=== PATIENT | male | born 1960 | race Caucasian/White ===

== ENCOUNTER 2016-05-27 19:24 | Inpatient (IN) | payer MEDICARE ==
[~2016-05-27] VITALS: Ht 172.7 cm; Wt 146.5 kg
[~2016-05-27 19:24] MED LIST: ACID1TAB14 PO; AMLO10TA2 PO; ASCO-78 PO; ASPI81TA2 PO; ATOR20TA58 PO; CHOL10003 PO; CHOL20004 PO; CIPR250T30 PO; COLE1TAB PO; FERR325T31 PO; FURO-69 PO; FURO20TA3 PO; FURO40TA4 PO; GLIP10TA13 PO; HUM100VI5 SQ; HYDR200T5 PO; INSU100V12 SQ; LEVO500T38 PO; LISI-338 PO; METF10002 PO; METO25TA4 PO; METR500T PO; PANT40TA5 PO; POTA20TA4 PO; PRAV20TA2 PO; PRED5TAB PO; SPIR25TA3 PO; TRAM50TA PO; Vancomycin Hcl PO
--- NOTE | 2016-05-27 21:28 | PHYS DOC ---
Past Medical History Past Medical History: Cancer, Diabetes-Type II, GERD, Hepatitis Additional Past Medical Histor: LUNG CA, OBESITY, FLOYD (HEP), CDIFF. Past Surgical History: Other Additional Past Surgical Histo: L HAND SX, BACK SX, PORT PLACEMENT RIGHT CHEST Alcohol Use: Sober Drug Use: None Adult General Chief Complaint Chief Complaint: ABDOMINAL PAIN HPI HPI Patient is a 55 year old male who presents with lower abdominal pain, nausea, wound between buttocks. Patient reports symptoms started couple days ago. He describes aching in his lower abdomen without clear inciting or mitigating factors. Not taken anything for symptoms at home prior to arrival. He was admitted to [facility] last week. Of note, patient has history of stage IV lung cancer for which he is on chemotherapy treatment. Last treatment was last week. Review of Systems Review of Systems Constitutional: Denies fever or chills Eyes: Denies change in visual acuity or eye pain HENT: Denies nasal congestion or sore throat Respiratory: Denies cough or shortness of breath Cardiovascular: Denies chest pain GI: Lower abdominal pain, nausea. Denies vomiting, bloody stools or diarrhea : Denies dysuria or hematuria Musculoskeletal: Denies back pain or joint pain Integument: Wound between buttocks Neurologic: Denies headache, focal weakness or sensory changes Current Medications Current Medications Current Medications Medications (Trade) Dose Ordered Sig/King Start Time Stop Time Status Last Admin Dose Admin Dextrose 12.5 gm PRN Q15MIN PRN 05/27/16 23:30 Info (Do NOT chart on this entry -- for MONITORING) 1 each PRN DAILY PRN 05/27/16 22:45 05/29/16 22:44 Insulin Aspart (Novolog) 0-7 UNITS TIDWMEALS 05/28/16 08:00 Iohexol (Omnipaque 300 Mg/ml) 75 ml 1X ONCE 05/27/16 23:00 05/27/16 23:01 DC 05/27/16 23:22 75 ML Morphine Sulfate 4 mg 4 mg PRN Q2HR PRN 05/27/16 23:30 05/28/16 23:29 Ondansetron HCl (Zofran) 4 mg PRN Q8HRS PRN 05/27/16 23:30 05/28/16 23:29 Piperacillin Sod/ Tazobactam Sod 1 each 1 each PRN DAILY PRN 05/27/16 23:15 Piperacillin Sod/ Tazobactam Sod/ Sodium Chloride (Zosyn/Iv Sodium Chloride 0.9% 100ml) 100 ml @ 200 mls/hr 1X ONCE 05/27/16 23:30 05/27/16 23:59 Sodium Chloride (Iv Sodium Chloride 0.9% 1000ml Bag) 1,000 ml @ 500 mls/hr 1X ONCE 05/27/16 23:30 05/28/16 01:29 Vancomycin HCl (Vanco Per Pharmacy) 1 each PRN DAILY PRN 05/27/16 23:15 Vancomycin HCl 2 gm/Sodium Chloride 500 ml @ 250 mls/hr 1X ONCE 05/27/16 23:30 05/28/16 01:29 Allergies Allergies Allergies Coded Allergies Type Severity Reaction Last Updated Verified acetaminophen Allergy Severe 12/28/15 Yes Physical Exam Physical Exam Constitutional: Well developed, well nourished, no acute distress, non-toxic appearance. [] HENT: Normocephalic, atraumatic, bilateral external ears normal, oropharynx moist, no oral exudates, nose normal. [] Eyes: PERRLA, EOMI, conjunctiva normal, no discharge. [] Neck: Normal range of motion, no tenderness, supple, no stridor. [] Cardiovascular:Heart rate regular rhythm, no murmur [] Lungs & Thorax: Bilateral breath sounds clear to auscultation [] Abdomen: Bowel sounds normal, soft, no tenderness, no masses, no pulsatile masses. [] Skin: Warm, dry, no erythema, no rash. [] Back: No tenderness, no CVA tenderness. [] Extremities: No tenderness, no cyanosis, no clubbing, ROM intact, no edema. [] Neurologic: Alert and oriented X 3, normal motor function, normal sensory function, no focal deficits noted. [] Psychologic: Affect normal, judgement normal, mood normal. [] Current Patient Data Vital Signs Vital Signs Date Time Temp Pulse Resp B/P Pulse Ox O2 Delivery O2 Flow Rate FiO2 05/27/16 22:52 20 05/27/16 21:55 95 107/54 93 Room Air 05/27/16 19:50 98.5 98.5 Lab Values Laboratory Tests Test 05/27/16 20:40 05/27/16 22:30 White Blood Count 19.1x10^3/uL (4.0-11.0) H Red Blood Count 1.91x10^6/uL (4.30-5.70) L Hemoglobin 6.5g/dL (13.0-17.5) *L Hematocrit 19.8% (39.0-53.0) *L Mean Corpuscular Volume 104fL (79-100) H Mean Corpuscular Hemoglobin 34pg (25-35) Mean Corpuscular Hemoglobin Concent 33g/dL (31-37) Red Cell Distribution Width 23.8% (11.5-14.5) H Platelet Count 23x10^3/uL (140-400) *L Neutrophils (%) (Auto) 1% (31-73) L Lymphocytes (%) (Auto) 98% (24-48) H Monocytes (%) (Auto) 1% (0-9) Eosinophils (%) (Auto) 0% (0-3) Basophils (%) (Auto) 0% (0-3) Neutrophils # (Auto) 0.2x10^3uL (1.8-7.7) L Lymphocytes # (Auto) 18.6x10^3/uL (1.0-4.8) H Monocytes # (Auto) 0.2x10^3/uL (0.0-1.1) Eosinophils # (Auto) 0.0x10^3/uL (0.0-0.7) Basophils # (Auto) 0.0x10^3/uL (0.0-0.2) Segmented Neutrophils % 1% (35-66) L Lymphocytes % 91% (24-48) H Atypical Lymphocytes % (Manual) 7% (0-0) H Monocytes % 1% (0-10) Smudge Cells Present Platelet Estimate Decreased (ADEQUATE) Poikilocytosis Slight Anisocytosis Mod Macrocytosis Slight Target Cells Few Sodium Level 138mmol/L (136-145) Potassium Level 3.9mmol/L (3.5-5.1) Chloride Level 101mmol/L (98-107) Carbon Dioxide Level 27mmol/L (21-32) Anion Gap 10 (6-14) Blood Urea Nitrogen 33mg/dL (8-26) H Creatinine 1.2mg/dL (0.7-1.3) Estimated GFR (Cockcroft-Gault) 62.6 BUN/Creatinine Ratio 28 (6-20) H Glucose Level 145mg/dL (70-99) H Calcium Level 7.4mg/dL (8.5-10.1) L Total Bilirubin 6.6mg/dL (0.2-1.0) H Aspartate Amino Transferase (AST) 91U/L (15-37) H Alanine Aminotransferase (ALT) 63U/L (16-63) Alkaline Phosphatase 182U/L (46-116) H Total Protein 6.4g/dL (6.4-8.2) Albumin 1.6g/dL (3.4-5.0) L Albumin/Globulin Ratio 0.3 (1.0-1.7) L Lipase 73U/L (73-393) Lactic Acid Level 3.2mmol/L (0.4-2.0) H Laboratory Tests 05/27/16 20:40 Laboratory Tests 05/27/16 20:40 EKG EKG [] Radiology/Procedures Radiology/Procedures CT A/P: IMPRESSION 1. Small left pleural effusion. 2. Moderate amount of ascites which has increased slightly since the previous study. 3. No additional acute abnormality is seen. Course & Med Decision Making Course & Med Decision Making Pertinent Labs and Imaging studies reviewed. (See chart for details) Patient is 55-year-old male who presents with lower abdominal pain, nausea, wound between buttocks. Has recently had C. difficile. Will check labs, CT abdomen/pelvis. IV fluids, pain medication, nausea medication ordered for relief of symptoms. Labs notable for leukocytosis, anemia, thrombocytopenia, elevated total bilirubin, elevated lactic acid. CT results as above. Discussed with patient, will give blood transfusion given hemoglobin 6.5. Blood consent signed and placed on chart. Given immunocompromise status, will treat with broad spectrum antibiotics. Additional fluid bolus ordered. Have not given the full 30 mL per kilo sepsis bolus as patient's heart rate and blood pressure is okay and I do not wish to overload the patient. Discussed with Dr. Lee, will admit under his care for further evaluation and treatment. Dragon Disclaimer Dragon Disclaimer This electronic medical record was generated, in whole or in part, using a voice recognition dictation system. Departure Departure Referrals: ERIC JENSEN Jr, MD (PCP) THERON MONTERO MD May 27, 2016:28
[2016-05-27 21:42] LABS: BASO % 0 % (0-3); EOS % 0 % (0-3); LYMPH # 18.6 x10^3/uL (1.0-4.8); LYMPH % 98 % (24-48); MEAN CORPUSCULAR HEMOGLOBIN 34 pg (25-35); MEAN CORPUSCULAR HGB CONC 33 g/dL (31-37); MEAN CORPUSCULAR VOLUME 104 fL (79-100); MONO % 1 % (0-9); NEUT % 1 % (31-73); RED BLOOD COUNT 1.91 x10^6/uL (4.30-5.70); RED CELL DISTRIBUTION WIDTH 23.8 % (11.5-14.5); WHITE BLOOD COUNT 19.1 x10^3/uL (4.0-11.0)
[2016-05-27 21:47] LABS: HEMATOCRIT 19.8 % (39.0-53.0); HEMOGLOBIN 6.5 g/dL (13.0-17.5); PLATELET COUNT 23 x10^3/uL (140-400)
[2016-05-27 21:49] LABS: CALCIUM 7.4 mg/dL (8.5-10.1); CREATININE 1.2 mg/dL (0.7-1.3); GFR 62.6; POTASSIUM 3.9 mmol/L (3.5-5.1)
[2016-05-27 21:56] LABS: ALBUMIN 1.6 g/dL (3.4-5.0); ALBUMIN/GLOBULIN RATIO 0.3 (1.0-1.7); TOTAL BILIRUBIN 6.6 mg/dL (0.2-1.0); TOTAL PROTEIN 6.4 g/dL (6.4-8.2)
[2016-05-27] MEDS ORDERED: IV NORMAL SALINE 1000ML BAG 1,000 ML IV SCH (22:00)
[2016-05-27] MEDS ORDERED: ONDANSETRON PF 4 MG/2 ML VIAL. IV ONE (22:00)
[2016-05-27] MEDS ORDERED: MORPHINE SULFATE 4 MG/ML DISP.SYRIN. IV ONE (22:00)
[2016-05-27 22:05] LABS: PLT ESTIMATE DECREASED (ADEQUATE)
[2016-05-27 22:09] LABS: SMUDGE CELLS PRESENT
[2016-05-27 22:10] LABS: ANISOCYTOSIS MOD; POIKILOCYTOSIS SLIGHT
[2016-05-27 22:11] LABS: TARGET CELLS FEW
[2016-05-27] MEDS ORDERED: CONTRAST GIVEN MC PRN (22:45)
[2016-05-27] MEDS ORDERED: IOHEXOL 300 MG/ML 75 ML VIAL IV ONE (23:00)
[2016-05-27] MEDS ORDERED: PIP/TAZO PER PHARMACY MC PRN (23:15)
[2016-05-27] MEDS ORDERED: VANCOMYCIN PER PHARMACY MC PRN (23:15)
[2016-05-27] MEDS ORDERED: DEXTROSE 50% 25 GM / 50ML DISP.SYRIN. IV PRN (23:30)
[2016-05-27] MEDS ORDERED: VANCOMYCIN 2 GM in IV NORMAL SALINE 500ML BAG 500 ML IV ONE (23:30)
[2016-05-27] MEDS ORDERED: MORPHINE SULFATE 4 MG/ML DISP.SYRIN. IV PRN (23:30)
[2016-05-27] MEDS ORDERED: IV NORMAL SALINE 1000ML BAG 1,000 ML IV ONE (23:30)
[2016-05-27] MEDS ORDERED: PIPERACILLIN/TAZOBACTAM 4.5 GM in IV NORMAL SALINE 100ML 100 ML IV ONE (23:30)
[2016-05-27] MEDS ORDERED: ONDANSETRON PF 4 MG/2 ML VIAL. IV PRN (23:30)
--- NOTE | 2016-05-27 23:54 | RAD ---
PROCEDURE CT scan of the abdomen and pelvis with contrast 05/27/2016 HISTORY Severe lower abdominal pain. History of lung cancer. TECHNIQUE After the intravenous administration of 75 cc Omnipaque 300, contiguous, 5 millimeter axial sections were obtained through the abdomen and pelvis. One or more of the following individualized dose reduction techniques were utilized for this study: 1. Automated exposure control. 2. Adjustment of the mA and/or kV according to patient size. 3. Use of iterative reconstruction technique. FINDINGS Comparison study is dated 04/25/2016. Images through the lung bases demonstrate areas of atelectasis and/or infiltrate involving the visualized portions of both upper lobes. There is a small left pleural effusion. Left lower lobe atelectasis and/or infiltrate is seen. The liver has a nodular contour suggestive of cirrhosis. The spleen is mildly enlarged measuring 14 centimeters in length. No focal abnormality of the liver or spleen is seen. The pancreas, adrenal glands and kidneys are within normal limits. Mild atherosclerotic calcification of the abdominal aorta is seen. The abdominal aorta tapers normally. A moderate amount of ascites is seen involving the abdomen. There is no evidence of bowel obstruction Images through the pelvis demonstrate the urinary bladder distended with urine. Calcifications are seen within the pelvis consistent with phleboliths. A moderate amount of ascites is seen extending into the lower abdomen and the pelvis. The osseous structures are unchanged. The amount of ascites is increased slightly since the previous examination. IMPRESSION 1. Small left pleural effusion. 2. Moderate amount of ascites which has increased slightly since the previous study. 3. No additional acute abnormality is seen. Electronically signed by: Clive Coleman MD (May 27, 2016 23:52:59)
[2016-05-28] VITALS (19 sets, daily range): BP systolic 85–134; BP diastolic 40–68
[2016-05-28] MEDS ORDERED: INSULIN ASPART 300 UNITS/3 ML INSULN.PEN SQ SCH (08:00)
[2016-05-28] MEDS: PIPERACILLIN/TAZOBACTAM 3.375 GM in IV NORMAL SALINE 50ML 50 ML IV SCH ×2 (08:02→11:53)
[2016-05-28 08:31] LABS: ALBUMIN 1.5 g/dL (3.4-5.0); ALBUMIN/GLOBULIN RATIO 0.4 (1.0-1.7); CALCIUM 7.1 mg/dL (8.5-10.1); CREATININE 1.2 mg/dL (0.7-1.3); GFR 62.6; POTASSIUM 3.6 mmol/L (3.5-5.1); TOTAL BILIRUBIN 6.5 mg/dL (0.2-1.0); TOTAL PROTEIN 5.3 g/dL (6.4-8.2)
[2016-05-28] MEDS ORDERED: ONDANSETRON PF 4 MG/2 ML VIAL. IV PRN (09:10)
[2016-05-28] MEDS ORDERED: IBUPROFEN 600 MG TABLET. PO PRN (09:15)
[2016-05-28] MEDS ORDERED: DEXTROSE 50% 25 GM / 50ML DISP.SYRIN. IV PRN (09:15)
[2016-05-28] MEDS ORDERED: PANTOPRAZOLE 40 MG TABLET. PO SCH (10:00)
[2016-05-28] MEDS ORDERED: POTASSIUM CHLORIDE 20 MEQ TABLET.ER. PO SCH (10:00)
[2016-05-28] MEDS ORDERED: CHOLECALCIFEROL (VITAMIN D3) 1,000 UNIT TABLET PO SCH (10:00)
[2016-05-28 10:13] LABS: BASO % 0 % (0-3); EOS % 0 % (0-3); HEMOGLOBIN 7.1 g/dL (13.0-17.5); LYMPH # 11.5 x10^3/uL (1.0-4.8); LYMPH % 97 % (24-48); MEAN CORPUSCULAR HEMOGLOBIN 32 pg (25-35); MEAN CORPUSCULAR HGB CONC 34 g/dL (31-37); MEAN CORPUSCULAR VOLUME 96 fL (79-100); MONO % 1 % (0-9); NEUT % 1 % (31-73); RED BLOOD COUNT 2.18 x10^6/uL (4.30-5.70); RED CELL DISTRIBUTION WIDTH 24.5 % (11.5-14.5); WHITE BLOOD COUNT 11.8 x10^3/uL (4.0-11.0)
--- NOTE | 2016-05-28 10:23 | PDOC ---
Provider Note Provider Note Onc consult dictated- [id number] Stage IV lung cancer with bilateral lung mets- Palliative pemextrexed given 05/20. Has had complications w/ each cycle even w/ dose reductions but previously had tx response so wants to continue tx, does not wall pall care. Pancytopenia due to chemo- s/p 2 unit PRBC overnight CLL- Responsible for baseline lymphocytosis Sacral wound, likely due to baseline immobility Plan: - Transfuse for hgb < 7, plt < 7 - Received Neulasta 05/21. ANC likely to soon improve. Please only add granix if clinically decompensates. No obvious infx at this time. - Wound care consulted - CT chest ordered to ensure pt still having tx response. He desires more tx but has very poor tolerance for it. - ? pt's insurance still accepted here; NCM consulted to help determine if inpt transfer needed. Recently at [facility]. Dr. Casper is covering this weekend. I will return Tuesday. JEREL TALBERT DO May 28, 2016 10:23
[2016-05-28] MEDS ORDERED: IOHEXOL 300 MG/ML 75 ML VIAL IV ONE (10:45)
[2016-05-28 10:59] LABS: HEMATOCRIT 20.9 % (39.0-53.0); PLATELET COUNT 11 x10^3/uL (140-400)
--- NOTE | 2016-05-28 11:45 | PDOC1 ---
History and Physical Date of Admission Date of Admission DATE: 05/28/16 TIME: 11:38 Identification/Chief Complaint Chief Complaint weak - pt poor historian Source Source: Caregiver, Chart review, Patient History of Present Illness History of Present Illness Pt 55 male, known to me I admitted Mar 2016 for: 1. Acute Diarrhea in an immunocompromised 2. Hx c diff diarrhea Feb 2016 (first episode) 3. ARF sec to GI loss 4. HYPOTENSION, fluid responsive 5. Lung CA stage 4 on chemotherapy 6. Overweight with mod PCM 7. SIRS POA, no sepsis 8. Hx thrombocytopenia 9. Diabetes mellitus 10. Hx fungus esophagitis Very poor historian, looks very pale, MAybe came to ER for weakness> labs showed severe anemia hgb 6, platelets 23, WBC 19, Known to me for hx c diff,. he claims he is tsill having loose stools with some blood in it, claims finished the course of his vanco and flagyl NIO fevers, notes abd cramping - BUT These info are all upon coaxing, he would not volunteer any info He might down play his sxs He did not phillip much lunch CRea elevated, NS running aggressive LActate down to 3 from, 6 Past Medical History Cardiovascular: HTN GI: No pertinent hx Heme/Onc: Cancer Hepatobiliary: No pertinent hx Psych: No pertinent hx Musculoskeletal: low back pain Endocrine: Diabetes Past Surgical History Past Surgical History: No pertinent history Family History Family History: Alzheimer's Disease Social History Smoke: No ALCOHOL: none Drugs: None Current Problem List Problem List Problems Medical Problems: (1) Abdominal pain Status: Acute Problems: Current Medications Current Medications Current Medications Sodium Chloride (Iv Sodium Chloride 0.9% 1000ml Bag) 1,000 ml @ 1,000 mls/hr Q1H IV Last administered on 05/27/16 22:52; Start 05/27/16 at 22:00; Stop at 22:59; Status DC Ondansetron HCl (Zofran) 4 mg 1X ONCE IV Last administered on 05/27/16 22:52; Start 05/27/16 at 22:00; Stop 05/27/16 at 22:01; Status DC Morphine Sulfate 4 mg 1X ONCE IV Last administered on 05/27/16 22:52; Start at 22:00; Stop 05/27/16 at 22:01; Status DC Iohexol (Omnipaque 300 Mg/ml) 75 ml 1X ONCE IV Last administered on 05/27/16 23:22; Start 05/27/16 at 23:00; Stop 05/27/16 at 23:01; Status DC Info (Do NOT chart on this entry -- for MONITORING) 1 each PRN DAILY PRN MC SEE COMMENTS; Start 05/27/16 at 22:45; Stop 05/29/16 at 22:44 Vancomycin HCl (Vanco Per Pharmacy) 1 each PRN DAILY PRN MC SEE COMMENTS Last administered on 05/28/16 11:06; Start 05/27/16 at 23:15 Piperacillin Sod/ Tazobactam Sod 1 each 1 each PRN DAILY PRN MC SEE COMMENTS Last administered on 05/27/16 23:20; Start 05/27/16 at 23:15; Stop 05/28/16 at 11: 09; Status DC Vancomycin HCl 2 gm/Sodium Chloride 500 ml @ 250 mls/hr 1X ONCE IV Last administered on 05/28/16 08:53; Start 05/27/16 at 23:30; Stop 05/28/16 at 01:29; Status DC Piperacillin Sod/ Tazobactam Sod/ Sodium Chloride (Zosyn/Iv Sodium Chloride 0.9 % 100ml) 100 ml @ 200 mls/hr 1X ONCE IV Last administered on 05/27/16 23:40; Start 05/27/16 at 23:30; Stop 05/27/16 at 23:59; Status DC Ondansetron HCl (Zofran) 4 mg PRN Q8HRS PRN IV NAUSEA/VOMITING; Start 05/27/16 at 23:30; Stop 05/28/16 at 09:15; Status DC Morphine Sulfate 4 mg 4 mg PRN Q2HR PRN IV SEVERE PAIN; Start 05/27/16 at 23:30 ; Stop 05/28/16 at 23:29 Sodium Chloride (Iv Sodium Chloride 0.9% 1000ml Bag) 1,000 ml @ 500 mls/hr 1X ONCE IV Last administered on 05/28/16 09:06; Start 05/27/16 at 23:30; Stop at 01:29; Status DC Insulin Aspart (Novolog) 0-7 UNITS TIDWMEALS SQ ; Start 05/28/16 at 08:00; Stop 05/28/16 at 10:42; Status DC Dextrose 12.5 gm 12.5 gm PRN Q15MIN PRN IV SEE COMMENTS; Start 05/27/16 at 23:30 ; Stop 05/28/16 at 10:42; Status DC Piperacillin Sod/ Tazobactam Sod/ Sodium Chloride (Zosyn/Iv Sodium Chloride 0.9 % 50ml) 50 ml @ 100 mls/hr Q6HRS IV Last administered on 05/28/16t 08:02; Start 05/28/16 at 06:00 Ondansetron HCl (Zofran) 4 mg PRN Q6HRS PRN IV NAUSEA/VOMITING; Start 05/28/16 at 09:10 Insulin Aspart (Novolog) 0-9 UNITS TIDWMEALS SQ ; Start 05/28/16 at 12:00 Dextrose 12.5 gm PRN Q15MIN PRN IV SEE COMMENTS; Start 05/28/16 at 09:15 Ibuprofen (Motrin) 600 mg PRN Q6HRS PRN PO INFLAMMATION; Start 05/28/16 at 09:15 Lactobacillus Acidophilus (Bacid, Areli-Bid) 1 tab TIDWMEALS PO ; Start 05/28/16 at 12:00 Vitamin D (Vitamin D3) 2,000 unit DAILY PO ; Start 05/28/16 at 10:00 Pantoprazole Sodium (Protonix) 40 mg DAILYAC PO ; Start 05/28/16 at 10:00 Potassium Chloride (Klor-Con) 20 meq DAILY PO ; Start 05/28/16 at 10:00 Iohexol 75 ml 75 ml 1X ONCE IV Last administered on 05/28/16t 11:31; Start 05/28 at 10:45; Stop 05/28/16 at 10:46; Status DC Vancomycin HCl/ Sodium Chloride (Iv Sodium Chloride 0.9% 500ml Bag) 500 ml @ 250 mls/hr Q8H IV ; Start 05/28/16 at 17:00 Vancomycin HCl 1 each 1X ONCE MC ; Start 05/29/16 at 08:30; Stop 05/29/16 at 08: 31 Active Scripts Active Areli-Bid Caplet (Acidoph/L.bulg/Bif.b/S.thermop) 1 Each Tablet 1 Tab PO TIDWMEALS Reported Vitamin D3 (Cholecalciferol (Vitamin D3)) 1,000 Unit Tablet 2,000 Unit PO DAILY Pantoprazole Sodium 40 Mg Tablet.dr 1 Tab PO DAILY Klor-Con M20 (Potassium Chloride) 20 Meq Tab.er.prt 1 Tab PO DAILY Allergies Allergies: Coded Allergies: acetaminophen (Verified Allergy, Severe, 12/28/15) Liver dysfunction ROS General: YES: Fatigue, Malaise, Other (weak) PSYCHOLOGICAL ROS: YES: Depression Eyes: No Blurry vision, No Decreased vision, No Double vision, No Dry eyes, No Excessive tearing, No Eye Pain, No Itchy Eyes, No Loss of vision, No Other, No Photophobia, No Scotomata, No Uses contacts, No Uses glasses HEENT: No: Epistaxis, Heacaches, Hearing change, Nasal congestion, Nasal discharge, Oral lesions, Other, Sinus pain, Sneezing, Snoring, Sore Throat, Tinnitus, Vertigo, Visual Changes, Vocal changes ALLERGY AND IMMUNOLOGY: No: Hives, Insect Bite Sensitivity, Itchy/Watery Eyes, Nasal Congestion, Other, Post Nasal Drip, Seasonal Allergies Hematological and Lymphatic: YES: Bleeding Problems, Blood Transfusions ENDOCRINE: No: Breast Changes, Galactorrhea, Hair Pattern Changes, Hot Flashes , Malaise/lethargy, Mood Swings, Other, Palpitations, Polydipsia/polyuria, Skin Changes, Temperature Intolerance, Unexpected Weight Changes Breast: No New/Changing Breast Lumps, No Nipple changes, No Nipple discharge, No Other Respiratory: No: Cough, Hemoptysis, Orthopnea, Other, Pleuritic Pain, SOB with excertion, Shortness of breath, Sputum Changes, Stridor, Tachypnea, Wheezing Cardiovascular: No Chest Pain, No Edema, No Lt Headedness, No Orthopnea, No Other, No Palpitations, No Paroxysmal Noc. Dyspnea Gastrointestinal: Yes Abdominal Pain, Yes Diarrhea, Yes Nausea, Yes Vomiting Genitourinary: No , No , No , No , No , No , No , No Discharge, No Dysuria, No Flank Pain, No Frequency, No Hematuria, No Incontinence, No Other, No Pain, No Retention, No Urgency Musculoskeletal: No Gait Disturbance, No Joint Pain, No Joint Stiffness, No Joint Swelling, No Muscle Pain, No Muscular Weakness, No Other, No Pain In:, No Swelling In: Neurological: No Behavorial Changes, No Bowel/Bladder ControlChng, No Confusion , No Dizziness, No Gait Disturbance, No Headaches, No Impaired Coord/balance, No Memory Loss, No Numbness/Tingling, No Other, No Seizures, No Speech Problems , No Tremors, No Visual Changes, No Weakness Skin: No Acne, No Dry Skin, No Eczema, No Hair Changes, No Lumps, No Mole Changes, No Mottling, No Nail Changes, No Other, No Pruritus, No Rash, No Skin Lesion Changes Vitals Vitals Vital Signs Date Time Temp Pulse Resp B/P Pulse Ox O2 Delivery O2 Flow Rate FiO2 05/28/16 08:30 99.2 94 20 108/46 94 99.2 05/28/16 07:00 Room Air Labs Labs Laboratory Tests Test 05/27/16 20:40 05/27/16 22:30 05/28/16 01:35 05/28/16 07:40 White Blood Count 19.1x10^3/uL (4.0-11.0) Red Blood Count 1.91x10^6/uL (4.30-5.70) Hemoglobin 6.5g/dL (13.0-17.5) Hematocrit 19.8% (39.0-53.0) Mean Corpuscular Volume 104fL (79-100) Mean Corpuscular Hemoglobin 34pg (25-35) Mean Corpuscular Hemoglobin Concent 33g/dL (31-37) Red Cell Distribution Width 23.8% (11.5-14.5) Platelet Count 23x10^3/uL (140-400) Neutrophils (%) (Auto) 1% (31-73) Lymphocytes (%) (Auto) 98% (24-48) Monocytes (%) (Auto) 1% (0-9) Eosinophils (%) (Auto) 0% (0-3) Basophils (%) (Auto) 0% (0-3) Neutrophils # (Auto) 0.2x10^3uL (1.8-7.7) Lymphocytes # (Auto) 18.6x10^3/uL (1.0-4.8) Monocytes # (Auto) 0.2x10^3/uL (0.0-1.1) Eosinophils # (Auto) 0.0x10^3/uL (0.0-0.7) Basophils # (Auto) 0.0x10^3/uL (0.0-0.2) Segmented Neutrophils % 1% (35-66) Lymphocytes % 91% (24-48) Atypical Lymphocytes % (Manual) 7% (0-0) Monocytes % 1% (0-10) Smudge Cells Present Platelet Estimate Decreased (ADEQUATE) Poikilocytosis Slight Anisocytosis Mod Macrocytosis Slight Target Cells Few Sodium Level 138mmol/L (136-145) 140mmol/L (136-145) Potassium Level 3.9mmol/L (3.5-5.1) 3.6mmol/L (3.5-5.1) Chloride Level 101mmol/L (98-107) 104mmol/L (98-107) Carbon Dioxide Level 27mmol/L (21-32) 28mmol/L (21-32) Anion Gap 10 (6-14) 8 (6-14) Blood Urea Nitrogen 33mg/dL (8-26) 33mg/dL (8-26) Creatinine 1.2mg/dL (0.7-1.3) 1.2mg/dL (0.7-1.3) Estimated GFR (Cockcroft-Gault) 62.6 62.6 BUN/Creatinine Ratio 28 (6-20) 28 (6-20) Glucose Level 145mg/dL (70-99) 153mg/dL (70-99) Calcium Level 7.4mg/dL (8.5-10.1) 7.1mg/dL (8.5-10.1) Total Bilirubin 6.6mg/dL (0.2-1.0) 6.5mg/dL (0.2-1.0) Aspartate Amino Transf (AST/SGOT) 91U/L (15-37) 83U/L (15-37) Alanine Aminotransferase (ALT/SGPT) 63U/L (16-63) 60U/L (16-63) Alkaline Phosphatase 182U/L (46-116) 152U/L (46-116) Total Protein 6.4g/dL (6.4-8.2) 5.3g/dL (6.4-8.2) Albumin 1.6g/dL (3.4-5.0) 1.5g/dL (3.4-5.0) Albumin/Globulin Ratio 0.3 (1.0-1.7) 0.4 (1.0-1.7) Lipase 73U/L (73-393) Lactic Acid Level 3.2mmol/L (0.4-2.0) 2.7mmol/L (0.4-2.0) Test 05/28/16 08:58 05/28/16 09:55 Glucose (Fingerstick) 147mg/dL (70-99) White Blood Count 11.8x10^3/uL (4.0-11.0) Red Blood Count 2.18x10^6/uL (4.30-5.70) Hemoglobin 7.1g/dL (13.0-17.5) Hematocrit 20.9% (39.0-53.0) Mean Corpuscular Volume 96fL (79-100) Mean Corpuscular Hemoglobin 32pg (25-35) Mean Corpuscular Hemoglobin Concent 34g/dL (31-37) Red Cell Distribution Width 24.5% (11.5-14.5) Platelet Count 11x10^3/uL (140-400) Neutrophils (%) (Auto) 1% (31-73) Lymphocytes (%) (Auto) 97% (24-48) Monocytes (%) (Auto) 1% (0-9) Eosinophils (%) (Auto) 0% (0-3) Basophils (%) (Auto) 0% (0-3) Neutrophils # (Auto) 0.1x10^3uL (1.8-7.7) Lymphocytes # (Auto) 11.5x10^3/uL (1.0-4.8) Monocytes # (Auto) 0.2x10^3/uL (0.0-1.1) Eosinophils # (Auto) 0.0x10^3/uL (0.0-0.7) Basophils # (Auto) 0.0x10^3/uL (0.0-0.2) Laboratory Tests Test 05/27/16 20:40 05/27/16 22:30 05/28/16 01:35 05/28/16 07:40 White Blood Count 19.1x10^3/uL (4.0-11.0) Red Blood Count 1.91x10^6/uL (4.30-5.70) Hemoglobin 6.5g/dL (13.0-17.5) Hematocrit 19.8% (39.0-53.0) Mean Corpuscular Volume 104fL (79-100) Mean Corpuscular Hemoglobin 34pg (25-35) Mean Corpuscular Hemoglobin Concent 33g/dL (31-37) Red Cell Distribution Width 23.8% (11.5-14.5) Platelet Count 23x10^3/uL (140-400) Neutrophils (%) (Auto) 1% (31-73) Lymphocytes (%) (Auto) 98% (24-48) Monocytes (%) (Auto) 1% (0-9) Eosinophils (%) (Auto) 0% (0-3) Basophils (%) (Auto) 0% (0-3) Neutrophils # (Auto) 0.2x10^3uL (1.8-7.7) Lymphocytes # (Auto) 18.6x10^3/uL (1.0-4.8) Monocytes # (Auto) 0.2x10^3/uL (0.0-1.1) Eosinophils # (Auto) 0.0x10^3/uL (0.0-0.7) Basophils # (Auto) 0.0x10^3/uL (0.0-0.2) Segmented Neutrophils % 1% (35-66) Lymphocytes % 91% (24-48) Atypical Lymphocytes % (Manual) 7% (0-0) Monocytes % 1% (0-10) Smudge Cells Present Platelet Estimate Decreased (ADEQUATE) Poikilocytosis Slight Anisocytosis Mod Macrocytosis Slight Target Cells Few Sodium Level 138mmol/L (136-145) 140mmol/L (136-145) Potassium Level 3.9mmol/L (3.5-5.1) 3.6mmol/L (3.5-5.1) Chloride Level 101mmol/L (98-107) 104mmol/L (98-107) Carbon Dioxide Level 27mmol/L (21-32) 28mmol/L (21-32) Anion Gap 10 (6-14) 8 (6-14) Blood Urea Nitrogen 33mg/dL (8-26) 33mg/dL (8-26) Creatinine 1.2mg/dL (0.7-1.3) 1.2mg/dL (0.7-1.3) Estimated GFR (Cockcroft-Gault) 62.6 62.6 BUN/Creatinine Ratio 28 (6-20) 28 (6-20) Glucose Level 145mg/dL (70-99) 153mg/dL (70-99) Calcium Level 7.4mg/dL (8.5-10.1) 7.1mg/dL (8.5-10.1) Total Bilirubin 6.6mg/dL (0.2-1.0) 6.5mg/dL (0.2-1.0) Aspartate Amino Transf (AST/SGOT) 91U/L (15-37) 83U/L (15-37) Alanine Aminotransferase (ALT/SGPT) 63U/L (16-63) 60U/L (16-63) Alkaline Phosphatase 182U/L (46-116) 152U/L (46-116) Total Protein 6.4g/dL (6.4-8.2) 5.3g/dL (6.4-8.2) Albumin 1.6g/dL (3.4-5.0) 1.5g/dL (3.4-5.0) Albumin/Globulin Ratio 0.3 (1.0-1.7) 0.4 (1.0-1.7) Lipase 73U/L (73-393) Lactic Acid Level 3.2mmol/L (0.4-2.0) 2.7mmol/L (0.4-2.0) Test 05/28/16 08:58 05/28/16 09:55 Glucose (Fingerstick) 147mg/dL (70-99) White Blood Count 11.8x10^3/uL (4.0-11.0) Red Blood Count 2.18x10^6/uL (4.30-5.70) Hemoglobin 7.1g/dL (13.0-17.5) Hematocrit 20.9% (39.0-53.0) Mean Corpuscular Volume 96fL (79-100) Mean Corpuscular Hemoglobin 32pg (25-35) Mean Corpuscular Hemoglobin Concent 34g/dL (31-37) Red Cell Distribution Width 24.5% (11.5-14.5) Platelet Count 11x10^3/uL (140-400) Neutrophils (%) (Auto) 1% (31-73) Lymphocytes (%) (Auto) 97% (24-48) Monocytes (%) (Auto) 1% (0-9) Eosinophils (%) (Auto) 0% (0-3) Basophils (%) (Auto) 0% (0-3) Neutrophils # (Auto) 0.1x10^3uL (1.8-7.7) Lymphocytes # (Auto) 11.5x10^3/uL (1.0-4.8) Monocytes # (Auto) 0.2x10^3/uL (0.0-1.1) Eosinophils # (Auto) 0.0x10^3/uL (0.0-0.7) Basophils # (Auto) 0.0x10^3/uL (0.0-0.2) VTE Prophylaxis Ordered VTE Prophylaxis Devices: Contraindicated VTE Pharmacological Prophylaxi: Contraindicated Assessment/Plan Assessment/Plan 1. Diarrhea in an immunocompromised 2. Hx c diff diarrhea Feb 2016 (first episode) - 2 episodes so far total 3. ARF sec to GI loss 4. HYPOTENSION, fluid responsive 5. Lung CA stage 4 on chemotherapy 6. Overweight with mod PCM 7. SIRS POA, no sepsis 8. Hx thrombocytopenia 9. Diabetes mellitus 10. Hx fungus esophagitis PLAn: REcheck c diff I might go ahead and check CT abd since c diff hx and complains abd cramps r/o c diff colitis ConsulT GI - known to them MOntior labs Transfuse 1 prBC Platelets now 11- will defer to heme onc Heme onc consulted PT/OT SUpprotive meds Now I just was informed possible transfer to [facility] bec insurance out of network here - will arrange for transfer CINDY DOHERTY MD May 28, 2016 11:45
[2016-05-28] MEDS: LACTOBACILLUS ACIDOPH & BULGAR 1 TABLET. PO SCH ×2 (11:54→16:57)
[2016-05-28] MEDS: INSULIN ASPART 300 UNITS/3 ML INSULN.PEN SQ SCH ×2 (11:57→16:52)
--- NOTE | 2016-05-28 12:18 | PDOC ---
Subjective: Subjective: Known to GI w/ h/o C Diff (x2) and odynophagia (improved w/ empiric Diflucan). Stage IV lung cancer, admitted w/ anemia. Last tx 05/26/16. Consulted re: diarrhea, h/o C Diff. Says 1-3 stools daily. Poor appetite. Denies bleeding, dysphagia. Last GI consult 04/22/16 - to transfer to [facility]. Objective: Vital Signs: Vital Signs Date Time Temp Pulse Resp B/P Pulse Ox O2 Delivery O2 Flow Rate FiO2 05/28/16 11:00 101.1 94 20 123/54 93 Room Air 101.1 Labs: Laboratory Tests Test 05/27/16 20:40 05/27/16 22:30 05/28/16 01:35 05/28/16 07:40 White Blood Count 19.1x10^3/uL Red Blood Count 1.91x10^6/uL Hemoglobin 6.5g/dL Hematocrit 19.8% Mean Corpuscular Volume 104fL Mean Corpuscular Hemoglobin 34pg Mean Corpuscular Hemoglobin Concent 33g/dL Red Cell Distribution Width 23.8% Platelet Count 23x10^3/uL Neutrophils (%) (Auto) 1% Lymphocytes (%) (Auto) 98% Monocytes (%) (Auto) 1% Eosinophils (%) (Auto) 0% Basophils (%) (Auto) 0% Neutrophils # (Auto) 0.2x10^3uL Lymphocytes # (Auto) 18.6x10^3/uL Monocytes # (Auto) 0.2x10^3/uL Eosinophils # (Auto) 0.0x10^3/uL Basophils # (Auto) 0.0x10^3/uL Segmented Neutrophils % 1% Lymphocytes % 91% Atypical Lymphocytes % (Manual) 7% Monocytes % 1% Smudge Cells Present Platelet Estimate Decreased Poikilocytosis Slight Anisocytosis Mod Macrocytosis Slight Target Cells Few Sodium Level 138mmol/L 140mmol/L Potassium Level 3.9mmol/L 3.6mmol/L Chloride Level 101mmol/L 104mmol/L Carbon Dioxide Level 27mmol/L 28mmol/L Anion Gap 10 8 Blood Urea Nitrogen 33mg/dL 33mg/dL Creatinine 1.2mg/dL 1.2mg/dL Estimated GFR (Cockcroft-Gault) 62.6 62.6 BUN/Creatinine Ratio 28 28 Glucose Level 145mg/dL 153mg/dL Calcium Level 7.4mg/dL 7.1mg/dL Total Bilirubin 6.6mg/dL 6.5mg/dL Aspartate Amino Transf (AST/SGOT) 91U/L 83U/L Alanine Aminotransferase (ALT/SGPT) 63U/L 60U/L Alkaline Phosphatase 182U/L 152U/L Total Protein 6.4g/dL 5.3g/dL Albumin 1.6g/dL 1.5g/dL Albumin/Globulin Ratio 0.3 0.4 Lipase 73U/L Lactic Acid Level 3.2mmol/L 2.7mmol/L Test 05/28/16 08:58 05/28/16 09:55 05/28/16 11:57 Glucose (Fingerstick) 147mg/dL 164mg/dL White Blood Count 11.8x10^3/uL Red Blood Count 2.18x10^6/uL Hemoglobin 7.1g/dL Hematocrit 20.9% Mean Corpuscular Volume 96fL Mean Corpuscular Hemoglobin 32pg Mean Corpuscular Hemoglobin Concent 34g/dL Red Cell Distribution Width 24.5% Platelet Count 11x10^3/uL Neutrophils (%) (Auto) 1% Lymphocytes (%) (Auto) 97% Monocytes (%) (Auto) 1% Eosinophils (%) (Auto) 0% Basophils (%) (Auto) 0% Neutrophils # (Auto) 0.1x10^3uL Lymphocytes # (Auto) 11.5x10^3/uL Monocytes # (Auto) 0.2x10^3/uL Eosinophils # (Auto) 0.0x10^3/uL Basophils # (Auto) 0.0x10^3/uL Imaging: CT A/P 05/27/16 Comparison study is dated 04/25/2016. Images through the lung bases demonstrate areas of atelectasis and/or infiltrate involving the visualized portions of both upper lobes. There is a small left pleural effusion. Left lower lobe atelectasis and/or infiltrate is seen. The liver has a nodular contour suggestive of cirrhosis. The spleen is mildly enlarged measuring 14 centimeters in length. No focal abnormality of the liver or spleen is seen. The pancreas, adrenal glands and kidneys are within normal limits. Mild atherosclerotic calcification of the abdominal aorta is seen. The abdominal aorta tapers normally. A moderate amount of ascites is seen involving the abdomen. There is no evidence of bowel obstruction. Images through the pelvis demonstrate the urinary bladder distended with urine. Calcifications are seen within the pelvis consistent with phleboliths. A moderate amount of ascites is seen extending into the lower abdomen and the pelvis. The osseous structures are unchanged. The amount of ascites is increased slightly since the previous examination. IMPRESSION 1. Small left pleural effusion. 2. Moderate amount of ascites which has increased slightly since the previous study. 3. No additional acute abnormality is seen. CT chest PENDING PE: GEN: looks ill HEENT: atraumatic LUNGS: clear anteriorly HEART: RRR ABD: BS+, obese, soft, LUQ/periumbilical tenderness NEURO/PSYCH: A & O 3 SKIN: +jaundice A/P: Diarrhea, h/o recurrent C Diff -likely third occurrence, previously treated w/ oral vanco, metronidazole, and Colestid -h/o polyps on previous colonoscopies -C Diff pending today Stage IV lung cancer on chemo -last treatment 3/ Anemia, thrombocytopenia -has transfused, denies obvious bleeding Decreased appetite -h/o GERD, not bothersome, on PPI Elevated bilirubin -CT suggestive of cirrhosis w/ mild splenomegaly and moderate ascites -- To transfer to [facility] for insurance reasons. PO vanco for suspected C Diff. TURNER SCHREIBER May 28, 2016 12:18
--- NOTE | 2016-05-28 12:30 | PDOC3 ---
Discharge Summary Visit Information Date of Admission: May 27, 2016 Date of Discharge: May 28, 2016 Admitting Diagnosis Comment: Assessment/Plan 1. Diarrhea in an immunocompromised 2. Hx c diff diarrhea Feb 2016 (first episode) - 2 episodes so far total 3. ARF sec to GI loss 4. HYPOTENSION, fluid responsive 5. Lung CA stage 4 on chemotherapy 6. Overweight with mod PCM 7. SIRS POA, no sepsis 8. Hx thrombocytopenia 9. Diabetes mellitus 10. Hx fungus esophagitis PLAn: REcheck c diff I might go ahead and check CT abd since c diff hx and complains abd cramps r/o c diff colitis ConsulT GI - known to them MOntior labs Transfuse 1 prBC Platelets now 11- will defer to heme onc Heme onc consulted PT/OT SUpprotive meds Now I just was informed possible transfer to [facility] bec insurance out of network here - will arrange for transfer ACCEPTED BY DR. JIMENES of [facility] CONT ALL MEDS FROM HOSPITAL Final Diagnosis Problems Medical Problems: (1) Abdominal pain Status: Acute (2) Anemia Status: Acute Brief Hospital Course Allergies Allergies Coded Allergies Type Severity Reaction Last Updated Verified acetaminophen Allergy Severe 12/28/15 Yes Vital Signs Vital Signs Date Time Temp Pulse Resp B/P Pulse Ox O2 Delivery O2 Flow Rate FiO2 05/28/16 11:00 101.1 94 20 123/54 93 Room Air 101.1 Lab Results Laboratory Tests Test 05/27/16 20:40 05/27/16 22:30 05/28/16 01:35 05/28/16 07:40 White Blood Count 19.1x10^3/uL (4.0-11.0) Red Blood Count 1.91x10^6/uL (4.30-5.70) Hemoglobin 6.5g/dL (13.0-17.5) Hematocrit 19.8% (39.0-53.0) Mean Corpuscular Volume 104fL (79-100) Mean Corpuscular Hemoglobin 34pg (25-35) Mean Corpuscular Hemoglobin Concent 33g/dL (31-37) Red Cell Distribution Width 23.8% (11.5-14.5) Platelet Count 23x10^3/uL (140-400) Neutrophils (%) (Auto) 1% (31-73) Lymphocytes (%) (Auto) 98% (24-48) Monocytes (%) (Auto) 1% (0-9) Eosinophils (%) (Auto) 0% (0-3) Basophils (%) (Auto) 0% (0-3) Neutrophils # (Auto) 0.2x10^3uL (1.8-7.7) Lymphocytes # (Auto) 18.6x10^3/uL (1.0-4.8) Monocytes # (Auto) 0.2x10^3/uL (0.0-1.1) Eosinophils # (Auto) 0.0x10^3/uL (0.0-0.7) Basophils # (Auto) 0.0x10^3/uL (0.0-0.2) Segmented Neutrophils % 1% (35-66) Lymphocytes % 91% (24-48) Atypical Lymphocytes % (Manual) 7% (0-0) Monocytes % 1% (0-10) Smudge Cells Present Platelet Estimate Decreased (ADEQUATE) Poikilocytosis Slight Anisocytosis Mod Macrocytosis Slight Target Cells Few Sodium Level 138mmol/L (136-145) 140mmol/L (136-145) Potassium Level 3.9mmol/L (3.5-5.1) 3.6mmol/L (3.5-5.1) Chloride Level 101mmol/L (98-107) 104mmol/L (98-107) Carbon Dioxide Level 27mmol/L (21-32) 28mmol/L (21-32) Anion Gap 10 (6-14) 8 (6-14) Blood Urea Nitrogen 33mg/dL (8-26) 33mg/dL (8-26) Creatinine 1.2mg/dL (0.7-1.3) 1.2mg/dL (0.7-1.3) Estimated GFR (Cockcroft-Gault) 62.6 62.6 BUN/Creatinine Ratio 28 (6-20) 28 (6-20) Glucose Level 145mg/dL (70-99) 153mg/dL (70-99) Calcium Level 7.4mg/dL (8.5-10.1) 7.1mg/dL (8.5-10.1) Total Bilirubin 6.6mg/dL (0.2-1.0) 6.5mg/dL (0.2-1.0) Aspartate Amino Transf (AST/SGOT) 91U/L (15-37) 83U/L (15-37) Alanine Aminotransferase (ALT/SGPT) 63U/L (16-63) 60U/L (16-63) Alkaline Phosphatase 182U/L (46-116) 152U/L (46-116) Total Protein 6.4g/dL (6.4-8.2) 5.3g/dL (6.4-8.2) Albumin 1.6g/dL (3.4-5.0) 1.5g/dL (3.4-5.0) Albumin/Globulin Ratio 0.3 (1.0-1.7) 0.4 (1.0-1.7) Lipase 73U/L (73-393) Lactic Acid Level 3.2mmol/L (0.4-2.0) 2.7mmol/L (0.4-2.0) Test 05/28/16 08:58 05/28/16 09:55 05/28/16 11:57 Glucose (Fingerstick) 147mg/dL (70-99) 164mg/dL (70-99) White Blood Count 11.8x10^3/uL (4.0-11.0) Red Blood Count 2.18x10^6/uL (4.30-5.70) Hemoglobin 7.1g/dL (13.0-17.5) Hematocrit 20.9% (39.0-53.0) Mean Corpuscular Volume 96fL (79-100) Mean Corpuscular Hemoglobin 32pg (25-35) Mean Corpuscular Hemoglobin Concent 34g/dL (31-37) Red Cell Distribution Width 24.5% (11.5-14.5) Platelet Count 11x10^3/uL (140-400) Neutrophils (%) (Auto) 1% (31-73) Lymphocytes (%) (Auto) 97% (24-48) Monocytes (%) (Auto) 1% (0-9) Eosinophils (%) (Auto) 0% (0-3) Basophils (%) (Auto) 0% (0-3) Neutrophils # (Auto) 0.1x10^3uL (1.8-7.7) Lymphocytes # (Auto) 11.5x10^3/uL (1.0-4.8) Monocytes # (Auto) 0.2x10^3/uL (0.0-1.1) Eosinophils # (Auto) 0.0x10^3/uL (0.0-0.7) Basophils # (Auto) 0.0x10^3/uL (0.0-0.2) Laboratory Tests Test 05/27/16 20:40 05/27/16 22:30 05/28/16 01:35 05/28/16 07:40 White Blood Count 19.1x10^3/uL (4.0-11.0) Red Blood Count 1.91x10^6/uL (4.30-5.70) Hemoglobin 6.5g/dL (13.0-17.5) Hematocrit 19.8% (39.0-53.0) Mean Corpuscular Volume 104fL (79-100) Mean Corpuscular Hemoglobin 34pg (25-35) Mean Corpuscular Hemoglobin Concent 33g/dL (31-37) Red Cell Distribution Width 23.8% (11.5-14.5) Platelet Count 23x10^3/uL (140-400) Neutrophils (%) (Auto) 1% (31-73) Lymphocytes (%) (Auto) 98% (24-48) Monocytes (%) (Auto) 1% (0-9) Eosinophils (%) (Auto) 0% (0-3) Basophils (%) (Auto) 0% (0-3) Neutrophils # (Auto) 0.2x10^3uL (1.8-7.7) Lymphocytes # (Auto) 18.6x10^3/uL (1.0-4.8) Monocytes # (Auto) 0.2x10^3/uL (0.0-1.1) Eosinophils # (Auto) 0.0x10^3/uL (0.0-0.7) Basophils # (Auto) 0.0x10^3/uL (0.0-0.2) Segmented Neutrophils % 1% (35-66) Lymphocytes % 91% (24-48) Atypical Lymphocytes % (Manual) 7% (0-0) Monocytes % 1% (0-10) Smudge Cells Present Platelet Estimate Decreased (ADEQUATE) Poikilocytosis Slight Anisocytosis Mod Macrocytosis Slight Target Cells Few Sodium Level 138mmol/L (136-145) 140mmol/L (136-145) Potassium Level 3.9mmol/L (3.5-5.1) 3.6mmol/L (3.5-5.1) Chloride Level 101mmol/L (98-107) 104mmol/L (98-107) Carbon Dioxide Level 27mmol/L (21-32) 28mmol/L (21-32) Anion Gap 10 (6-14) 8 (6-14) Blood Urea Nitrogen 33mg/dL (8-26) 33mg/dL (8-26) Creatinine 1.2mg/dL (0.7-1.3) 1.2mg/dL (0.7-1.3) Estimated GFR (Cockcroft-Gault) 62.6 62.6 BUN/Creatinine Ratio 28 (6-20) 28 (6-20) Glucose Level 145mg/dL (70-99) 153mg/dL (70-99) Calcium Level 7.4mg/dL (8.5-10.1) 7.1mg/dL (8.5-10.1) Total Bilirubin 6.6mg/dL (0.2-1.0) 6.5mg/dL (0.2-1.0) Aspartate Amino Transf (AST/SGOT) 91U/L (15-37) 83U/L (15-37) Alanine Aminotransferase (ALT/SGPT) 63U/L (16-63) 60U/L (16-63) Alkaline Phosphatase 182U/L (46-116) 152U/L (46-116) Total Protein 6.4g/dL (6.4-8.2) 5.3g/dL (6.4-8.2) Albumin 1.6g/dL (3.4-5.0) 1.5g/dL (3.4-5.0) Albumin/Globulin Ratio 0.3 (1.0-1.7) 0.4 (1.0-1.7) Lipase 73U/L (73-393) Lactic Acid Level 3.2mmol/L (0.4-2.0) 2.7mmol/L (0.4-2.0) Test 05/28/16 08:58 05/28/16 09:55 05/28/16 11:57 Glucose (Fingerstick) 147mg/dL (70-99) 164mg/dL (70-99) White Blood Count 11.8x10^3/uL (4.0-11.0) Red Blood Count 2.18x10^6/uL (4.30-5.70) Hemoglobin 7.1g/dL (13.0-17.5) Hematocrit 20.9% (39.0-53.0) Mean Corpuscular Volume 96fL (79-100) Mean Corpuscular Hemoglobin 32pg (25-35) Mean Corpuscular Hemoglobin Concent 34g/dL (31-37) Red Cell Distribution Width 24.5% (11.5-14.5) Platelet Count 11x10^3/uL (140-400) Neutrophils (%) (Auto) 1% (31-73) Lymphocytes (%) (Auto) 97% (24-48) Monocytes (%) (Auto) 1% (0-9) Eosinophils (%) (Auto) 0% (0-3) Basophils (%) (Auto) 0% (0-3) Neutrophils # (Auto) 0.1x10^3uL (1.8-7.7) Lymphocytes # (Auto) 11.5x10^3/uL (1.0-4.8) Monocytes # (Auto) 0.2x10^3/uL (0.0-1.1) Eosinophils # (Auto) 0.0x10^3/uL (0.0-0.7) Basophils # (Auto) 0.0x10^3/uL (0.0-0.2) Brief Hospital Course Mr. Ybarra is a 55 old [sex] who presented with [ ] Pt 55 male, known to me I admitted Mar 2016 for: 1. Acute Diarrhea in an immunocompromised 2. Hx c diff diarrhea Feb 2016 (first episode) 3. ARF sec to GI loss 4. HYPOTENSION, fluid responsive 5. Lung CA stage 4 on chemotherapy 6. Overweight with mod PCM 7. SIRS POA, no sepsis 8. Hx thrombocytopenia 9. Diabetes mellitus 10. Hx fungus esophagitis Very poor historian, looks very pale, MAybe came to ER for weakness> labs showed severe anemia hgb 6, platelets 23, WBC 19, Known to me for hx c diff,. he claims he is tsill having loose stools with some blood in it, claims finished the course of his vanco and flagyl NIO fevers, notes abd cramping - BUT These info are all upon coaxing, he would not volunteer any info He might down play his sxs He did not phillip much lunch CRea elevated, NS running aggressive LActate down to 3 from, 6 Discharge Information Condition at Discharge: Stable Disposition/Orders: Other (other [facility]) Scheduled Acidoph/L.bulg/Bif.b/S.thermop (Areli-Bid Caplet) 1 TAB PO TIDWMEALS Cholecalciferol (Vitamin D3) (Vitamin D3) 2,000 UNIT PO DAILY (Reported) Pantoprazole Sodium (Pantoprazole Sodium) 1 TAB PO DAILY (Reported) Potassium Chloride (Klor-Con M20) 1 TAB PO DAILY (Reported) Discontinued Medications Lisinopril (Lisinopril) 1 TAB PO DAILY (Reported) Pravastatin Sodium (Pravastatin Sodium) 1 TAB PO DAILY (Reported) CINDY DOHERTY MD May 28, 2016 12:30
--- NOTE | 2016-05-28 12:49 | RAD ---
Exam performed: CT chest with contrast. History: Lung cancer. Date of service: 05/28/16. Comparison: CT chest from 04/25/16. Technique: Contiguous helical acquisitions are obtained through the chest during intravenous administration of 70 cc of Omnipaque 300. Sagittal and coronal reformatted images are obtained and reviewed. Findings: There is a stable area of masslike consolidation with areas of cavitation in the right upper lobe abutting the fissure. There is also an area of masslike consolidation in the left lower lobe with new left pleural effusion. Previously seen areas of groundglass opacity appears somewhat improved, however persists. There are scattered nodular opacities in both lungs most of which appear stable. No dominant mediastinal or hilar lymphadenopathy seen. Structures at the thoracic inlet including both lobes of the thyroid gland appear grossly normal. Lack of IV contrast limits evaluation of neck and intrathoracic vessels, however they appear normal in course and caliber, mild atheromatous calcification of the aorta is noted. Heart size is within limits of normal without pericardial effusion. Limited evaluation of the upper abdominal structures demonstrates unchanged perihepatic and increasing perisplenic ascites. Impression: 1. Masslike consolidative opacity in the right upper lobe containing areas of calcification consistent with previously known malignancy appears similar. 2. New Area of consolidative opacity in the left lower lobe with a small left pleural effusion. 3. Overall unchanged pulmonary nodules scattered in both lungs 4. Perihepatic and perisplenic ascites. PQRS Compliance Statement: One or more of the following individualized dose reduction techniques were utilized for this examination: 1. Automated exposure control 2. Adjustment of the mA and/or kV according to patient size 3. Use of iterative reconstruction technique
[2016-05-28] MEDS: VANCOMYCIN 125 MG/2.5 ML ORAL SOLUTION. PO SCH ×2 (13:00→16:57)
[2016-05-28] MEDS ORDERED: VANCOMYCIN 1.5 GM in IV NORMAL SALINE 500ML BAG 500 ML IV SCH (17:00)
--- NOTE | 2016-05-29 01:17 | ACF ---
Admission Forms Criteria GASTROENTEROLOGY [facility]G Clinical Indications for Admission to Inpatient Care (Place 'X' for any and all applicable criteria): Hospital admission is needed for appropriate care of the patient because of ANY ONE of the following: [ ]I. Hemoperitoneum(7) [ ]II. Ascites requiring acute treatment indicated by ANY ONE of the following( 8)(9): [ ]a) Hemodynamic instability remaining after emergency or observation level care (as appropriate) [ ]b) Peritoneal signs present (eg, abdominal rigidity, rebound tenderness, absent bowel sounds) [ ]c) Tachypnea, Hypoxemia, or other respiratory symptoms remain after emergency or observation level care (as appropriate) [ ]d) Suspected infected ascites as indicated by ANY ONE of the following: [ ]i) Temperature greater than 100 degrees F (37.8 degrees C) [ ]ii) Abdominal pain or tenderness not relieved by paracentesis [ ]iii) Systemic signs of infection (eg, elevated WBC count, fever) [ ]iv) Ascitic fluid analysis consistent with infection ( eg, elevated WBC count): [ ]v) Vital sign abnormality [ ]III. Suspected acute intra-abdominal process indicated by ANY ONE of the following(1)(2)(3)(4)(5): [ ]a) Hemodynamic instability [ ]b) Peritoneal signs present (eg, abdominal rigidity, rebound tenderness, absent bowel sounds) [ ]c) Bowel obstruction suspected (eg, severe vomiting, abdominal distension) [ ]d) Suspected mesenteric ischemia or ischemic colitis(6) [ ]e) Other signs or symptoms of acute abdominal disease (eg, severe pain, free air): [ ]IV. Severe liver disease indicated by ANY ONE of the following(8)(9)(10)(11)( 12)(13)(14): [ ]a) Acute hepatitis (eg, transaminase level greater than 1000 IU/L) [ ]b) Acute elevation of prothrombin time to more than 50% above normal or INR greater than 1.5 [ ]c) Bilirubin greater than 20 mg/dL (342 micromoles/L) (15) [ ]d) New-onset or worsening hepatic encephalopathy [ ]e) Acute liver necrosis [ ]f) Vomiting or dehydration that is severe of persistent [ ]g) Hemodynamic instability due to liver disease [ ]h) Acute renal failure [ ]i) Hepatic abscess [ ]j) Dehydration that is severe or persistent [ ]k) Hepatic hydrothorax(21) [ ]l) Other indications of severe liver disease (eg, persistent fever , ingestion of hepatotoxin) [X]V. Severe diarrhea indicated by ANY ONE of the following(17)(18)(19)(20)(21)( 22)(23): [ ]a) High fever or other high-risk infection situation [ ]b) Intractable bloody diarrhea (eg, more than 6 bloody stools per day) [ ]c) Suspected Clostridium difficile-associated diarrhea(24) [ ]d) Change in mental status that persists after emergency or observation level care (as appropriate) [ ]e) Severe dehydration (eg, greater than 9% loss of body weight in children) [ ]f) Inability to maintain hydration [ ]g) Peritoneal signs present (eg, abdominal rigidity, rebound tenderness, absent bowel sounds) [ ]h) Abdominal ischemia suspected(6) [ ]i) Hemodynamic instability that persists after emergency or observation level care (as appropriate) [ ]j) Severe electrolyte abnormalities requiring inpatient care [X]k) Acute renal failure [ ]. Suspected toxic megacolon(5)(6) [ ]VII.Severe dysphagia indicated by ANY ONE of the following(25)(26): [ ]a) Suspected esophageal perforation or fistula(27) [ ]b) Suspected cause that requires inpatient care (eg, caustic ingestion, severe esophagitis) (28) [ ]c) Severe dehydration (eg, greater than 9% loss of body weight in children) [ ]d) Inability to manage secretions or maintain hydration [ ]e) Hemodynamic instability that persists after emergency or observation level care (as appropriate) [ ]f) Severe electrolyte abnormalities requiring inpatient care [ ]g) Acute renal failure [ ]VIII.Vomiting and ANY ONE of the following (29)(30)(31)(32): [ ]a) High fever or other high-risk infection situation [ ]b) Change in mental status that persists after emergency or observation level care (as appropriate) [ ]c) Severe dehydration (e.g., greater than 9% loss of body weight in children) [ ]d) Peritoneal signs present (e.g., abdominal rigidity, rebound tenderness, absent bowel sounds) [ ]e) Hemodynamic instability that persists after emergency or observation level care (as appropriate) [ ]f) Severe electrolyte abnormalities requiring inpatient care [ ]g) Acute renal failure [ ]h) Bowel obstruction suspected (e.g., severe vomiting, abdominal distension) [ ]i) Vomiting that is severe or persistent after medical treatment [ ]IX. Significant dehydration indicated by ANY ONE of the following(23)(24)(25) [ ]a) Clinical findings of severe dehydration indicated by ANY ONE of the following: [ ]i) Acute loss of weight from baseline (5% of body weight in adults, 9% in pediatric patients) [ ]ii) Hemodynamic instability [ ]iii) Acute renal failure [ ]iv) Serum sodium greater than 150 mEq/L (mmol/L) [ ]b) Dehydration that is persistent indicated by ALL of the following: [ ]i) Oral rehydration therapy not tolerated or insufficient to adequately correct dehydration [ ]ii) Appropriate intravenous treatment (eg, fluids) does not readily correct dehydration hours of (ie, after 12 to 24 of treatment) [ ]X. Gastroparesis and ANY ONE of the following(37)(38)(39): [ ]a) Dehydration that is severe or persistent [ ]b) Severe electrolyte abnormalities requiring inpatient care [ ]c) Acute renal failure [ ]d) Vomiting that is severe or persistent [ ]XI. Complications of transplanted liver indicated by ANY ONE of the following (40)(41): [ ]a) Acute graft rejection requiring inpatient management (eg, intravenous immunosuppression)(42) [ ]b) Failure of transplanted liver as indicated by ANY ONE of the following: [ ]i) Acute hepatitis (eg, transaminase level greater than 1000 International Units per liter (IU/L)) [ ]ii) Acute elevation of prothrombin time to more than 50% above baseline or INR greater than 1.5 [ ]iii) Bilirubin greater than 20 mg/dL (342 micromoles/L) [ ]iv) New-onset or worsening hepatic encephalopathy [ ]v) Acute elevation of serum ammonia level (eg, greater than 210 mcg/dL (150 micromoles/L)) [ ]vi) Acute liver necrosis [ ]c) Infection requiring inpatient management (eg, Hemodynamic instability, need for intravenous antimicrobial treatment)(43)(44)(45)(46)(47)(48)(49)(50) [ ]d) Other complication of transplanted liver (eg, thrombosis, autoimmune hepatitis, variceal bleeding) requiring inpatient management(51)(52) [ ]XII Complications of transplanted pancreas indicated by ANY ONE of the following(53): [ ]a) Acute graft rejection requiring inpatient management (eg, intravenous immunosuppression)(42)(54) [ ]b) Failure of transplanted pancreas as indicated by ANY ONE of the following: [ ]i) Serum amylase greater than 3 times the upper limit of normal or baseline [ ]ii) Serum lipase greater than 3 times the upper limit of normal or baseline [ ]iii) Imaging findings consistent with pancreatic inflammation or necrosis [ ]c) Infection requiring inpatient management (eg, Hemodynamic instability, need for intravenous antimicrobial treatment)(43)(44)(45)(46)(47)(48)(49)(50) [ ]d) Other complication of transplanted liver (eg, thrombosis, autoimmune hepatitis, variceal bleeding) requiring inpatient management(51)(52) [ ]X. Gastroenterology condition and ALL of the following: [ ]a) Symptom or finding for which emergency and observation care have failed or are not considered appropriate (Also use General Criteria: Observation Care as appropriate) [ ]b) Presence of ANY ONE of the following: [ ]i) A General Admission Criteria [ ]ii) A Pediatric General Admission Criteria. The original [facility] [employer] content created by [facility] has been revised. The portions of the content which have been revised are identified through the use of italic text or in bold,and [facility] has neither reviewed nor approved the modified material. All other unmodified content is copyright [facility]. Please see references footnoted in the original [facility] edition 2016 Admission Criteria Met?: Yes GABY SALES May 29, 2016 01:17
--- NOTE | 2016-05-29 05:13 | CONS ---
DATE OF CONSULTATION: 05/28/2016 ONCOLOGY CONSULTATION REFERRING PROVIDER: Dr. Lee. REASON FOR CONSULTATION: Lung cancer. HISTORY OF PRESENT ILLNESS: The patient is a 55-year-old male who I treated in the clinic for stage IV nonsmall cell lung cancer. He was diagnosed in December 2015 with bilateral lung nodules. Unfortunately, he does not have any mutations for targeted treatment. He received carboplatin, paclitaxel first, but was admitted with complications including recurrent lip swelling and severe cytopenias. We then transitioned to palliative pemetrexed and he received his third cycle of that on 05/20/2016. Unfortunately even despite dose reductions in Neulasta he continues to have complications requiring hospitalization after every treatment. He has had bouts with C. diff colitis 2 different times. He has baseline cytopenias due to his cirrhosis with a baseline platelet count around 70. Now, his platelets are 23. His hemoglobin also dropped to 6.5. He is admitted with abdominal pain, which is not untypical for him following treatment, nausea, and a new sacral wound. He states that he still does want to be aggressive in his care and desires more treatment in the future. His CT scan done after cycle 2 did show an improved treatment response and thus he wishes to continue. PAST MEDICAL HISTORY: Cirrhosis, diabetes, hyperlipidemia, sleep apnea, carpal tunnel syndrome, GERD, recurrent C. diff, baseline thrombocytopenia, newly diagnosed CLL. PAST SURGICAL HISTORY: Carpal tunnel surgery on the left hand, back surgery, cataract repair, lung biopsy. FAMILY HISTORY: Mom with hypertension. Dad with lung cancer. Brother, heart disease and non-Hodgkin's lymphoma. SOCIAL HISTORY: No tobacco use. He lives with his parents. ALLERGIES: TYLENOL. CURRENT MEDICATIONS: Lactobacillus, NovoLog, Protonix, potassium chloride, vitamin D, ibuprofen, Zofran, Zosyn, morphine, vancomycin. REVIEW OF SYSTEMS: Ten-point review of systems completed and unremarkable with the exception of that mentioned in the HPI. He does have some baseline fatigue. This is approximately his baseline performance status. He has not had any fevers, chills or recurrent diarrhea at this time. PHYSICAL EXAMINATION: VITAL SIGNS: Temperature 100.8 overnight, now temperature 98.8, pulse 86, respiratory rate 16, blood pressure 102/43, 92% O2 on room air. GENERAL: He is alert and oriented. He is fatigued at his baseline. He is not in any acute distress at this time. HEENT: Mucous membranes are dry. CARDIOVASCULAR: Heart is regular in rhythm and rate. LUNGS: Clear to auscultation bilaterally. ABDOMEN: Soft, nontender. EXTREMITIES: No edema currently. NEUROLOGIC: No focal deficits. SKIN: He does have a sacral wound on his buttocks. There is also some slight area of rash, which does not appear typical of the rash associated with pemetrexed. IMAGING AND LABORATORY DATA: WBC stable at 19.1 with a lymphocyte predominance. His ANC is 0.2, hemoglobin 6.5, platelets 23. Lactic acid 3.4. BMP was unremarkable, but total bilirubin newly elevated at 6.6, AST 91, alkaline phosphatase 182, albumin is 1.6. CT of the abdomen and pelvis revealed his known cirrhosis with small left pleural effusions; otherwise there is no abdominal disease. ASSESSMENT AND PLAN: The patient is a 55-year-old male with the following medical problems: 1. 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 He has no targetable mutations. He has had complications following each cycle of chemotherapy, now status post his fourth treatment, most recently pemetrexed dose reduced given with Neulasta on 05/20/2016, today is day 9. His previous scans did show an improved treatment response, though he has complications with the treatment. He does still desire to continue with treatment. I would only potentially give two more treatments before we would stop. He is not interested in palliative care at this time. I will plan to dose reduce further treatments further and continue Neulasta support. I will see him again in clinic on 06/09/2016. I ordered repeat scans again which did note stable disease. 2. Pancytopenia, chemotherapy associated. His ANC is 0.2. However, clinically he appears very stable. He has already been transfused 2 units of blood and a repeat CBC is pending. Please continue to transfuse as needed for hemoglobin less than 7, platelets less than 10. I would hold off starting Neupogen unless he continues to have fevers or clinically is not improving. I suspect his blood counts will begin to improve in the very near future. He does not have any obvious infections at this time. He received Neulasta in our clinic. 3. Sacral buttock wound/rash. Wound team has been consulted. This is not a typical rash associated with pemetrexed. I suspect it is due to his immobility at home. 4. Chronic lymphocytic leukemia. This is the reason for his persistent lymphocytosis. 5. Transaminitis, likely due to recent chemotherapy. Continue to monitor. Dr. Casepr is covering this weekend if any acute issues occur. I will return on Tuesday and have followup in place with him on 06/09/2016 as above. Thank you for alerting us of his admission. Also, of note, he states he was recently told his insurance was not accepted at [facility] any longer. He was recently admitted at [facility]. I have placed a consult to the nurse case management to discuss if he would require a hospital transfer due to insurance reasons. JEREL TALBERT DO DR: STONE/reggie JOB#: [id number] / [id number] BRIANNE
== END 2016-05-28 17:42 | disposition short-term general hospital (02) | DRG 682 ==
LOC: ER 19:24 → ED HOLD 23:16 → 6 SOUTH 05-28 00:41
PROVIDERS: ADMIT Internal Medicine; ATTEND Internal Medicine
PROC: 30233R1 Transfusion of Nonautologous Platelets into Peripheral Vein, Percutaneous Approach (ICD-10-PCS; principal; 2016-05-28)
PROC: 30233N1 Transfusion of Nonautologous Red Blood Cells into Peripheral Vein, Percutaneous Approach (ICD-10-PCS; 2016-05-28)
DX: N17.9 Acute kidney failure, unspecified (principal); D61.810 Antineoplastic chemotherapy induced pancytopenia; R18.8 Other ascites; C34.90 Malignant neoplasm of unspecified part of unspecified bronchus or lung; C78.01 Secondary malignant neoplasm of right lung; C78.02 Secondary malignant neoplasm of left lung; C91.10 Chronic lymphocytic leukemia of B-cell type not having achieved remission; Z68.42 Body mass index [BMI] 45.0-49.9, adult; E44.0 Moderate protein-calorie malnutrition; R65.10 Systemic inflammatory response syndrome (SIRS) of non-infectious origin without acute organ dysfunction; E11.9 Type 2 diabetes mellitus without complications; E66.3 Overweight; E78.5 Hyperlipidemia, unspecified; G47.30 Sleep apnea, unspecified; I10 Essential (primary) hypertension; K21.9 Gastro-esophageal reflux disease without esophagitis; K74.60 Unspecified cirrhosis of liver; E66.9 Obesity, unspecified; R19.7 Diarrhea, unspecified; G56.00 Carpal tunnel syndrome, unspecified upper limb; H26.9 Unspecified cataract; Z88.5 Allergy status to narcotic agent; Z82.49 Family history of ischemic heart disease and other diseases of the circulatory system; Z82.0 Family history of epilepsy and other diseases of the nervous system; Z80.7 Family history of other malignant neoplasms of lymphoid, hematopoietic and related tissues; Z80.1 Family history of malignant neoplasm of trachea, bronchus and lung
CPT/HCPCS: 36415; 71260; 74177; 80053; 82947; 83036; 83605; 83690; 85007; 85027; 86850; 86900; 86901; 86920; 87040; 87324; 96365; 96375; J1815; J2270; J2405; J2543; J3370; J7030; J7040; P9016; P9035; Q9967; 99285-25